=== PATIENT | female | born 1990 | race Asian ===

== ENCOUNTER 2019-10-26 13:44 | Emergency (ER) | payer OTHER ==
[~2019-10-26] VITALS: Ht 172.7 cm; Wt 77.5 kg
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
[2019-10-26 14:10] LABS: BASOPHILS # (AUTO) 0.02 x10^3/uL (0-0.1); BASOPHILS % (AUTO) 0 % (0-1); EOSINOPHILS # (AUTO) 0.09 x10^3/uL (0-0.4); EOSINOPHILS % (AUTO) 1 % (1-7); LYMPHOCYTES # (AUTO) 1.05 x10^3/uL (1-3.4); LYMPHOCYTES % (AUTO) 14 % (22-44); MD NO; MEAN CORPUSCULAR HEMOGLOBIN 31.6 pg (27.0-34.8); MEAN CORPUSCULAR HGB CONC 33.6 g/dL (32.4-35.8); MEAN CORPUSCULAR VOLUME 94.1 fL (80-100); MEAN PLATELET VOLUME 7.3 fL (7.4-10.4); MONOCYTES # (AUTO) 0.37 x10^3/uL (0.2-0.8); MONOCYTES % (AUTO) 5 % (2-9); NEUTROPHILS # (AUTO) 6.17 x10^3/uL (1.8-6.8); NEUTROPHILS % (AUTO) 80 % (42-75); PLATELET COUNT 239 x10^3/uL (130-400); RED BLOOD COUNT 4.24 x10^6/uL (3.82-5.3); RED CELL DISTRIBUTION WIDTH 12.9 % (9.6-15.2)
[2019-10-26 14:19] LABS: ANION GAP 9 mmol/L (5-15); CALCIUM 9.1 mg/dL (8.5-10.1); CHLORIDE 107 mmol/L (98-107); CREATININE 0.74 mg/dL (0.55-1.02)
--- NOTE | 2019-10-26 14:30 | NUR ---
PT CURRENTLY RESTING ON GURNEY. NAD NOTED. SKIN PWD. RESP EVEN AND UNLABORED. FRIENDS AT BEDSIDE. PT INTERACTING PLEASANTLY WITH FRIENDS. NSR 90'S NOTED ON UNDERWEAR HEMMER. PT AO X 4. RESP EVEN AND UNLABORED. NO ACUTE DISTRESS NOTED AT THIS TIME.
[2019-10-26 15:24] VITALS: BP 113/73
== END 2019-10-26 15:26 | disposition home or self-care (01) ==
LOC: ED 15:20
DX: F41.1 Generalized anxiety disorder (principal); R06.4 Hyperventilation; R20.2 Paresthesia of skin
CPT/HCPCS: 36415; 80048; 82040; 85025; 93005; 99284